=== PATIENT | female | born 1960 | race Caucasian/White ===

== ENCOUNTER 2016-12-19 17:02 | Emergency (ER) | payer OTHER ==
[~2016-12-19] VITALS: Ht 174 cm; Wt 101.0 kg
[~2016-12-19 17:02] MED LIST: AMOX875 PO; CLON.5 PO; DULO20 PO; FLUT1SPR9
[2016-12-19 17:05] VITALS: BP 142/81; PULSE 78; RESP 16; TEMP 98.7; O2SAT 97
[2016-12-19] MEDS ORDERED: ANTIANXIETY (17:17)
[2016-12-19] MEDS ORDERED: ANTIDEPRESSANT (17:17)
[2016-12-19] MEDS ORDERED: WATER PILL (17:18)
--- NOTE | 2016-12-19 17:32 | PD ---
HPI Chief Complaint: Injury Time Seen by Provider: 17:15 Travel History International Travel<30 days: No Contact w/Intl Traveler<30days: No Traveled to known affect area: No History of Present Illness HPI 56-year-old female presents emergency department for evaluation of left knee pain. She reports that yesterday while walking she twisted the knee and felt immediate pain to the medial aspect of the knee. Since then she developed increased pain and swelling of the left knee. She has pain with weightbearing and flexion of the knee. She reports the pain is localized to the medial aspect of the knee, worse with movement, relieved with rest, nonradiating, 6 out of 10 severity. She denies numbness, tingling, or weakness in the lower extremity. PFSH Past Medical History Hx Anticoagulant Therapy: No Anxiety: Yes Depression: Yes Diabetes: No Diminished Hearing: No Gastrointestinal Disorders: Yes (Reflux, IBS) ?: Not Menopausal: Yes : 1 Para: 1 Social History Alcohol Use: Yes (Occ.) Tobacco Use: No Substance Use: No Allergies-Medications (Allergen,Severity, Reaction): Coded Allergies: Nexium (Verified Allergy, Severe, Headache, 12/19/16) Vaseline (Verified Allergy, Severe, Rash, 12/19/16) Reported Meds & Prescriptions Reported Meds & Active Scripts Active Reported [Water Pill] [Antianxiety ] [Antidepressant] Review of Systems Except as stated in HPI: all other systems reviewed are Neg Physical Exam Narrative GENERAL: Well-nourished, well-developed patient. SKIN: Focused skin assessment warm/dry. HEAD: Normocephalic. EYES: No scleral icterus. No injection or drainage. NECK: Supple, trachea midline. No JVD or lymphadenopathy. CARDIOVASCULAR: Regular rate and rhythm without murmurs, gallops, or rubs. RESPIRATORY: Breath sounds equal bilaterally. No accessory muscle use. GASTROINTESTINAL: Abdomen soft, non-tender, nondistended. MUSCULOSKELETAL: No cyanosis. 2+ distal pulses. Left knee: Mild/Moderate swelling of the left knee. No joint effusion. Tender over the medial aspect of the knee. No deformity. No erythema or warmth of the joint. The knee joint is stable. BACK: Nontender without obvious deformity. No CVA tenderness. Data Data Last Documented VS Vital Signs Date Time Temp Pulse Resp B/P Pulse Ox O2 Delivery O2 Flow Rate FiO2 12/19/16 17:05 98.7 78 16 142/81 97 Orders Knee, Complete (4vws) (12/19/16 ) MDM Medical Decision Making Medical Screen Exam Complete: Yes Emergency Medical Condition: Yes Differential Diagnosis Knee sprain, meniscal injury, knee fracture. Narrative Course 56-year-old female presents emergency department for evaluation of left knee pain. She reports that yesterday while walking she internally twisted the knee and had immediate pain in the medial aspect of the knee. Since then she developed pain and swelling of the left knee. She reports that with immobilization and rest the pain improves. She has a history of arthritis of the knees. On exam she has mild to moderate swelling of the left knee. No joint effusion. X-rays pending Left knee x-ray; negative for fracture. No dislocation. Diagnosis Primary Impression: Knee LCL sprain Qualified Code: S83.422A - Sprain of lateral collateral ligament of left knee , initial encounter Referrals: Primary Care Physician Patient Instructions: General Instructions, Knee Sprain (ED) Additional Instructions: Wear the knee brace for support. Use crutches as needed for pain Elevate and ice the extremity as needed. Take Motrin as needed for pain and discomfort. Follow-up the primary doctor Disposition: 01 DISCHARGE HOME Condition: Stable Sherrie Chapa Dec 19, 2016 17:32
--- NOTE | 2016-12-19 18:40 | RADHPO ---
EXAM DATE/TIME: 12/19/2016 18:24 [facility] COMPARISON: No previous studies available for comparison. INDICATIONS : Left knee pain post fall today MEDICAL HISTORY : None. SURGICAL HISTORY : None. ENCOUNTER: Initial ACUITY: 1 day PAIN SCORE: 8/10 LOCATION: Left anterior knee FINDINGS: Four view examination of the left knee demonstrates no evidence of fracture or dislocation. Bony min eralization is normal. The articular surfaces are intact. The suprapatellar soft tissues have a nor mal configuration. CONCLUSION: Negative trauma study. Marco Vallejo MD on December 19, 2016 at 18:38 Board Certified Radiologist. This report was verified electronically.
== END 2016-12-19 19:05 | disposition home or self-care (01) ==
LOC: PHEFT 17:02
DX: S83.422A Sprain of lateral collateral ligament of left knee, initial encounter (principal); X50.1XXA Overexertion from prolonged static or awkward postures, initial encounter; Y93.01 Activity, walking, marching and hiking
CPT/HCPCS: 73564; 99283